=== PATIENT | male | born 1990 | race Hispanic/Latino ===

== ENCOUNTER 2017-11-11 21:31 | Inpatient (IN) | payer OTHER ==
[~2017-11-11] VITALS: Ht 162.6 cm; Wt 60.1 kg
[~2017-11-11 21:31] MED LIST: ZYPREXA10 MG PO
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
--- NOTE | 2017-11-12 02:15 | NUR ---
PT ARRIVED VIA STRETCHER. PT UP TO BEDSIDE CAMMODE. PT TOLERATED WELL. PT IS FROM [facility] WITH 2 GUARDS AT BEDSIDE. PT RECIVING 1ST UNIT OF BLOOD. WILL CONTINUE TO CLOSELY MONITOR.
--- NOTE | 2017-11-12 02:56 | NUR ---
PRBC STARTED PER ORDER. VS WNL. RN IN ROOM FOR FIRST 15MINS. NO REACTION NOTED. WILL CONTINUE TO MONITOR.
--- NOTE | 2017-11-12 04:00 | NUR ---
OTHER MEDICATIONS DELAYED D/T ONLY 1 IV ACCESS AVAILABLE. OTHER IV WILL BE PLACED. PT RECIVING BLOOD AT THIS TIME IN CURRENT IV.
--- NOTE | 2017-11-12 04:00 | NUR ---
PT RESTING IN BED AT THIS TIME. WILL CONTINUE TO CLOSELY MONITOR. 2 GUARDS AT BEDSIDE. COURTESY BOOTH CASHIER IN TO START NEW IV. WILL CONTINUE TO CLOSELY MONITOR.
--- NOTE | 2017-11-12 05:00 | NUR ---
ATTEMPTED IV START WITHOUT SUCCESS. PATIENT TOLERATING WELL. CUSTOMER RELATIONS SPECIALIST ABLE TO START IV IN RIGHT HAND. IV BOLUS STARTED. PATIENT DENIES ANY NEEDS AT THIS TIME. VS WNL. IV SITE WNL AFTER IV FLUIDS RUNNING FOR SEVERAL MINS.
--- NOTE | 2017-11-12 05:30 | NUR ---
BLOOD ADMINISTRATION FINISHED. NO REACTION NOTED. VS WNL. IV SITE WNL. PATIENT DENIES NEEDS AT THIS TIME.
--- NOTE | 2017-11-12 06:30 | NUR ---
PATIENT UP TO BSC. PATIENT DENIES FEELING DIZZY. OUTPUT QS. PATIENT BACK IN BED. DENIES FURTHER NEEDS.
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
--- NOTE | 2017-11-12 09:25 | NUR ---
PT ATE APPROX 855 OF CLEAR LIQ BREAKFAST. STOOD TO VOID WITH ASSIST FROM TWO GUARDS IN ROOM. PT VOIDED 600 MLS CLEAR YELLOW URINE. RETURNED TO BED - RESTING WITH HOB ELEVATED WATCHING TV. DENIES C/O AT THIS TIME.
--- NOTE | 2017-11-12 11:00 | NUR ---
PT SLEEPING WITH HOB ELEVATED RESPIRATIONS EVEN AND UNLABORED. GUARDS X2 IN ROOM.
--- NOTE | 2017-11-12 12:05 | NUR ---
ASSESSMENT COMPLETED, PT STATES ABD DISCOMFORT "5-6" THEN STATES NO IT'S "7-8", "IT'S A DULL PAIN.". GUARDS ASSISTED PT UP TO BATHROOM TO VOID, PT VOIDED 525 MLS CLEAR YELLOW URINE. RETURNED TO BED WATCHING TV. PT STATES "STOMACH PAIN IS A LITTLE BETTER BUT SOME OF THE PAIN IS FROM THE CHAINS AGAINST MY STOMACH." THERE IS A FINGER WIDTH UNDER-WAIST CHAIN.
--- NOTE | 2017-11-12 14:39 | NUR ---
PT UP TO BR WITH GUARDS ASSIST, HAD MED BROWN NON FORMED BM WITH BLOOD MIXED. RETURNED TO BED RESTING WITH HOB ELEVATED. I/O'S COMPLETED.
--- NOTE | 2017-11-12 15:03 | NUR ---
PATIENT UP TO BATHROOM TWICE NOW WITH HAVING GREENISH, GELATINOUS STOOLS WITH BRIGHT TINGED LIQUID SURROUNDING THE STOOLS. PT HAS TOLERATED A CLEAR LIQUID TRAY. PT STATES THAT THESE ARE HOW HIS BMs HAVE BEEN OVER THE LAST SEVERAL DAYS. PT TO TRANSFER TO MED/SURG WITHOUT TELE SOON.
--- NOTE | 2017-11-12 15:11 | NUR ---
REPORT GIVEN TO MUSTAPHA MONTANO ON MED/SURG. PATIENT TO TRANSFER WITHOUT TELEMETRY.
--- NOTE | 2017-11-12 15:46 | NUR ---
REPORT RECIEVED FROM ABISAI CCU RN. PT TO FLOOR TO ROOM 117 ACCOMPANIED BY LISE SCHWARTZ, ANG 2 GUARDS AT 1515. PT DENIED NAUSEA. REPORTED THAT HIS PAIN IS WELL CONTROLLED AT THIS TIME. PT CURRENTLY UP IN BATHROOM. STEADY ON FEET.
--- NOTE | 2017-11-12 16:56 | NUR ---
GAVE PT EDUCATION PACKET ON COLITIS. READ THIS INFORMATION TO PT, THEN GAVE PT THE PRINTED MATERIAL. PT VERBALIZED UNDERSTANDING. DENIED QUESTIONS.
--- NOTE | 2017-11-12 17:40 | NUR ---
PT ADVANCED TO FULL LIQUID DIET. TOLERATED WELL. ADVANCED TO REGULAR DIET. PT ORDERED TOMATO SOUP AND MASHED POTATOES AND GRAVY.
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
--- NOTE | 2017-11-12 19:30 | NUR ---
RECIEVED REPORT FROM DAY SHIFT NURSE. PATIENT RESTING IN BED. ASSISTED WITH SETUP FOR ORAL CARE. REFILLED WATER PITCHER. DELIVERED GLASS OF ORANGE JUICE. IVF INFUSING W/O DIFFICULTY. PATIENT DENIES NEEDS AT THIS TIME. CALL LIGHT IN REACH.
--- NOTE | 2017-11-12 19:45 | NUR ---
PATIENT RESTING IN BED. C/O PAIN IN LOWER ABDOMEN. ADMINISTERED TYLENOL. EDUCATED PATIENT IF TYLENOL IS NOT EFFECTIVE WITHIN ONE HOUR TO NOTIFY THE NURSE. BS ACTIVE. LUNGS CLEAR. HR REGULAR. NO EDEMA. SCDS IN PLACE. CALL LIGHT IN REACH.
--- NOTE | 2017-11-12 21:50 | NUR ---
PATIENT RESTING IN BED WITH EYES CLOSED. IVF INFUSING W/O DIFFICULTY.
--- NOTE | 2017-11-12 22:09 | NUR ---
PATIENT UP TO BATHROOM. OBTAINED STOOL SAMPLE. GOWN CHANGED. NO C/O PAIN. DENIES NEEDS. CALL LIGHT IN REACH.
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
--- NOTE | 2017-11-12 23:54 | NUR ---
PATIENT RESTING IN BED. NO C/O PAIN AT THIS TIME. IVF INFUSING W/O DIFFICULTY. DELIVERED ANOTHER CUP OF OJ. PATIENT DENIES FURTHER NEEDS. CALL LIGHT IN REACH.
--- NOTE | 2017-11-13 01:35 | NUR ---
ASSISTED PATIENT TO THE BATHROOM. VOIDED. BACK TO BED. PATIENT STATES HE IS HUNGRY. CONTACTED EVAPORATOR HELPER FOR BOXED LUNCH. NO C/O PAIN AT THIS TIME. PATIENT DENIES FURTHER NEEDS. CALL LIGHT IN REACH.
--- NOTE | 2017-11-13 02:07 | NUR ---
PATIENT RESTING IN BED. STATES HE HAS SHARP INTERMITTENT PAIN IN HIS EPIGASTRIC AREA, RATES PAIN A 5-6/10, DENIES NEED FOR PAIN MEDICATION. BS HYPERACTIVE THROUGHOUT, ABD IS SOFT, PATIENT STATES HE FEELS MILDLY DISTENDED. LUNGS ARE CLEAR. HR REGULAR. NO EDEMA. SCDS IN PLACE. IVF INFUSING W/O DIFFICULTY. PATIENT DENIES FURTHER NEEDS. CALL LIGHT IN REACH.
--- NOTE | 2017-11-13 04:26 | NUR ---
PATIENT SLEEPING. IVF INFUSING W/O DIFFICULTY. SCDS IN PLACE. CALL LIGHT IN REACH.
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
--- NOTE | 2017-11-13 07:09 | NUR ---
RECIEVED BEDSIDE REPORT FROM MUSTAPHA DHALIWAL. PT IN BED, AWAKE, ALERT. GUARDS AT BEDSIDE. HAS D5LR AT 150 CC/HR INFUSING. PT DENIED NEED FOR PAIN MEDICATION AT THIS TIME. PT REPORTED THAT PAIN TO ABDOMEN IS TOLERABLE AT THIS TIME.
--- NOTE | 2017-11-13 07:39 | NUR ---
PT SITTING UP IN BED. AM ASSESSMENT COMPLETE. PT RATES PAIN TO ABDOMEN 4/10, DENIES NEED FOR ANALGESIC, REPORTS THIS IS A TOLERABLE LEVEL OF PAIN FOR HIM. DENIES NEEDS. GUARDS AT BEDSIDE.
--- NOTE | 2017-11-13 08:55 | NUR ---
PT DOING WELL AM CARE. SHOWER DONE
--- NOTE | 2017-11-13 09:09 | NUR ---
PT IN BED, BRUSHING TEETH. ATE 100% OF BREAKFAST. DENIED OTHER NEEDS. GUARDS AT BEDSIDE.
--- NOTE | 2017-11-13 10:10 | NUR ---
VITALS AND I AND O DONE
--- NOTE | 2017-11-13 11:06 | NUR ---
PT IN BED SLEEPING. PT SAID HE IS NOT NEEDING ANYTHING AT THIS TIME.
--- NOTE | 2017-11-13 11:57 | NUR ---
PT IN BED, GUARDS AT BEDSIDE. ASSISTED PT IN ORDERING LUNCH. PT REPORTED THAT HIS PAIN TO ABDOMEN IS AT A TOLERABLE LEVEL AT THIS TIME. DENIED OTHER NEEDS.
--- NOTE | 2017-11-13 14:41 | NUR ---
TOOK VITALS AND I AND O DONE
--- NOTE | 2017-11-13 14:44 | NUR ---
PT UP TO BATHROOM, IS STEADY ON FEET. VOIDED URINE IN TOILET, AND HAD A LARGE LOOSE/LIQUID BM, BROWN/GREEN FOR THE MOST PART, BUT DID HAVE SOME SUZIE RED BLOOD. NOTIFIED DR. TAVAREZ OF THIS. SPOKE WITH PT ABOUT DIAGNOSTIC STUDIES, SUCH A COLONOSCOPY, PT STATED THAT HE WOULD "PASS", STATED THIS SEVERAL TIMES. PT DID INDICATE THAT HE WOULD BE WILLING TO HAVE AN UPPER ENDOSCOPY IF INDICATED. NOTIFIED DR. TAVAREZ OF ABOVE NOTED. PT RATED PAIN TO ABDOMEN 5/10, BUT DENIED NEED FOR ANALGESIC, STATED THAT THIS IS A TOLERABLE LEVEL OF PAIN. PT ATE 100% OF LUNCH. PROVIDED PT WITH FRESH ICE WATER. PT DENIED OTHER NEEDS AT THIS TIME.
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
--- NOTE | 2017-11-13 18:06 | NUR ---
SET UP FOR DINNER. DID VITELS AND I AND O
--- NOTE | 2017-11-13 20:14 | NUR ---
PATIENT UP TO BATHROOM. TOLERATING AMBULATION WELL, STEADY ON FEET SBA. NOW RESTING COMFORTABLY IN BED, BREATHING IS EVEN AND UNLABORED. REPORTS 5/10 PAIN IN ABD, PATIENT STATES THAT HIS TOLERABLE PAIN LEVEL IS 6/10. EDUCATED HIM TO INFORM STAFF IF PAIN INCREASES BEYOND TOLERABLE LEVEL. DENIES FURTHER NEEDS AT THIS TIME. ASSESSMENT DONE, IV ABX STARTED. CALL LIGHT WITHIN REACH, GUARDS AT BEDSIDE. [address]
--- NOTE | 2017-11-13 22:20 | NUR ---
PATIENT RESTING COMFORTABLY IN BED, BREATHING IS EVEN AND UNLABORED. DENIES NEEDS AT THIS TIME. PAIN IS 5/10, DENIES PAIN MEDICATION. CALL LIGHT WITHIN REACH. GUARDS AT BEDSIDE, [address]
--- NOTE | 2017-11-14 00:21 | NUR ---
PATIENT RESTING COMFORTABLY IN BED, BREATHING IS EVEN AND UNLABORED. PATIENT STATES HE IS HUNGRY, SANDWICH GIVEN. DENIES FURTHER NEEDS. CALL LIGHT WITHIN REACH, GUARDS AT BEDSIDE.
--- NOTE | 2017-11-14 02:00 | NUR ---
PATIENT RESTING COMFORTABLY IN BED, BREATHING IS EVEN AND UNLABORED. STATES PAIN IS 5/10 PAIN AND DENIES PAIN MEDICATION. PATIENT ALSO STATES "I GOT REALLY HOT EARLIER. I HOPE I'M NOT GETTING A FEVER." TEMPERATURE TAKEN, 97.9. PATIENT STATES "I FEEL OKAY RIGHT NOW. THAT FEELING WENT AWAY." DENIES FURTHER NEEDS. CALL LIGHT WITHIN REACH, GUARDS AT BEDSIDE. [address]
--- NOTE | 2017-11-14 03:43 | NUR ---
PATIENT RESTING COMFORTABLY IN BED, BREATHING IS EVEN AND UNLABORED. FLACCC SCORE OF 0. CALL LIGHT WITHIN REACH. GUARDS AT BEDSIDE, [address]
--- NOTE | 2017-11-14 05:28 | NUR ---
PATIENT RESTING COMFORTABLY IN BED. DENIES NEEDS AT THIS TIME. PAIN IS 5/10, STATES DOES NOT NEED PAIN MEDICATION. CALL LIGHT WITHIN REACH, GUARDS AT BEDSIDE. [address]
--- NOTE | 2017-11-14 05:29 | NUR ---
PATIENT'S NIGHT WAS UNEVENTFUL. HE HAS BEEN RESTING COMFORTABLY IN BED THROUGHOUT SHIFT. VSS, URINE OUTPUT QS. HAD ONE EPISODE OF LOOSE STOOL WITH SUZIE BLOOD. PATIENT CONSISTENTLY REPORTS 5/10 ABD PAIN AND REFUSES PAIN MEDICATIONS. 4 POINT SHACKLES PRESENT, IV FLUIDS INFUSING. SBA. TOLERATING DIET WELL. NO ACUTE CHANGES FROM BEGINNING OF SHIFT.
--- NOTE | 2017-11-14 06:34 | NUR ---
PATIENT RESTING COMFORTABLY IN BED, BREATHING IS EVEN AND UNLABORED. DENIES NEEDS AT THIS TIME. CALL LIGHT WITHIN REACH, GUARDS AT BEDSIDE. [address]
--- NOTE | 2017-11-14 07:15 | NUR ---
RECIEVED BEDSIDE REPORT FROM MUSTAPHA GOLDBERG. PT AWAKE, ALERT. DENIED NEED FOR PAIN MEDICATION, REPORTED PAIN LEVEL 5/10, STATED THIS IS A TOLERABLE LEVEL FOR HIM. PT IN BED, 2 GUARDS AT BEDSIDE.
--- NOTE | 2017-11-14 08:40 | NUR ---
PT IN BED, AWAKE, ALERT, ORIENTED X 4. RATED PAIN TO ABDOMEN 4/10, DENIED NEED FOR PAIN MEDICATION. DENIED NAUSEA. GUARDS AT BEDSIDE.
--- NOTE | 2017-11-14 10:25 | NUR ---
PT IN BED. HAD A LARGE LOOSE STOOL WITH SOME BRIGHT RED BLOOD IN IT. ALSO VOIDED 200 CC URINE IN HAT. DENIED NAUSEA. REPORTED ABDOMINAL PAIN, 5/10, DENIED NEED FOR PAIN MEDICATION. GUARDS AT BEDSIDE, PT IS GOING TO AMBULATE IN HALLS.
--- NOTE | 2017-11-14 10:48 | NUR ---
PT SET UP FOR SHOWER PER RN REQUEST. PT INFORMED THAT HE NEEDS TO WALK AROUND THE HALLWAY BY RN WELL.
--- NOTE | 2017-11-14 10:49 | NUR ---
SPOKE WITH DR. TAVAREZ REGARDING CURRENT DIET ORDER, RECIEVED VORB FOR CLEAR LIQUID DIET AT THIS TIME.
--- NOTE | 2017-11-14 11:25 | NUR ---
PT DRANK APROXIMATELY 6 OUNCES OF [facility]AX [facility]EL [facility]. REMOVED BOTTLES FROM BEDSIDE, PT WILL NOT HAVE SCOPE.
--- NOTE | 2017-11-14 12:36 | NUR ---
PT DISCHARGED VIA W/C AT 1230, ACCOMPANIED BY MUSTAPHA MILAN, AND 2 GUARDS.
--- NOTE | 2017-11-14 12:40 | NUR ---
DISCHARGE INSTRUCTIONS GIVEN TO PT BY MUSTAPHA MILAN PRIOR TO DISCHARGE TO [facility].
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
[2017-11-29] MEDS ORDERED: DELZICOL400 M1 PO (15:24)
[2017-11-29] MEDS ORDERED: POTASSIUM CITR10 MEQ PO (15:25)
== END 2017-11-14 12:30 | disposition home or self-care (01) | DRG 386 ==
LOC: ED 21:31 → CCU 11-12 00:24 → MS 11-12 15:15
PROVIDERS: ADMIT Internal Medicine
DX: K51.011 Ulcerative (chronic) pancolitis with rectal bleeding (principal); R65.10 Systemic inflammatory response syndrome (SIRS) of non-infectious origin without acute organ dysfunction; D62 Acute posthemorrhagic anemia; F20.89 Other schizophrenia; Z53.29 Procedure and treatment not carried out because of patient's decision for other reasons
CPT/HCPCS: 36415; 36430; 74177; 80048; 80053; 81001; 83605; 83735; 85025; 85610; 85651; 85730; 86255; 86671; 86850; 86900; 86901; 86920; 87040; 87045; 87046; 87077; 87205; 99285; J0744; J1720; J3475; J3480; J7060; J7120; P9016; Q9967

== ENCOUNTER 2017-11-30 06:26 | Day surgery (SDC) | payer OTHER ==
[~2017-11-30] VITALS: Ht 162.6 cm; Wt 61.7 kg
[~2017-11-30 06:26] MED LIST changes: +DELZICOL400 M1 PO; +POTASSIUM CITR10 MEQ PO
--- NOTE | 2017-11-30 08:34 | NUR ---
11/30/17 0834 Leanna Donvoan 0812 RESP EVEN AND UNLABORED. PT SLEEPING. REPORT FROM CROP SUPERVISOR. 0823 O2 DECREASED TO 2L 0830 O2 REMOVED, PT WOKE UP, REORIENTED TO PACU. 0832 MD AT BEDSIDE.
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
== END 2017-11-30 09:05 | disposition home or self-care (01) ==
LOC: DS 06:26 → OPS 06:26 → DS 06:45 → OPS 06:45
PROVIDERS: Surgery
PROC: 0DBN8ZX Excision of Sigmoid Colon, Via Natural or Artificial Opening Endoscopic, Diagnostic (ICD-10-PCS; 2017-11-30)
PROC: 0DBP8ZX Excision of Rectum, Via Natural or Artificial Opening Endoscopic, Diagnostic (ICD-10-PCS; 2017-11-30)
PROC: 0DBG8ZX Excision of Left Large Intestine, Via Natural or Artificial Opening Endoscopic, Diagnostic (ICD-10-PCS; 2017-11-30)
PROC: 0DB98ZX Excision of Duodenum, Via Natural or Artificial Opening Endoscopic, Diagnostic (ICD-10-PCS; 2017-11-30)
PROC: 0DB78ZX Excision of Stomach, Pylorus, Via Natural or Artificial Opening Endoscopic, Diagnostic (ICD-10-PCS; 2017-11-30)
PROC: 0DB38ZX Excision of Lower Esophagus, Via Natural or Artificial Opening Endoscopic, Diagnostic (ICD-10-PCS; 2017-11-30)
PROC: 0DBH8ZX Excision of Cecum, Via Natural or Artificial Opening Endoscopic, Diagnostic (ICD-10-PCS; principal; 2017-11-30 06:45)
PROC: 0DBL8ZX Excision of Transverse Colon, Via Natural or Artificial Opening Endoscopic, Diagnostic (ICD-10-PCS; 2017-11-30 06:45)
DX: K52.9 Noninfective gastroenteritis and colitis, unspecified (principal); K29.50 Unspecified chronic gastritis without bleeding; K29.80 Duodenitis without bleeding; K20.9 Esophagitis, unspecified; F25.9 Schizoaffective disorder, unspecified; Z79.899 Other long term (current) drug therapy; Z87.19 Personal history of other diseases of the digestive system
CPT/HCPCS: J1720; J2250; J2704; J3010; J7120